=== PATIENT | female | born 1995 | race Caucasian/White ===

== ENCOUNTER 2017-02-21 23:32 | Observation (INO) | payer OTHER ==
--- NOTE | ~2017-02-21 | HP ---
History And Physical [place] [id number] [facility] [place]. [address] NAME: NAVNEET SILVEIRA : 89 STATUS : ADM Nola PAT#: [id number] AGE: 21 ADM/REG DATE : 02/21/17 MR#: [id number] REPORT SERV DATE: 02/22/17 DICTATED BY: NOAM BERRY DATE: 02/22/17 REPORT STATUS : Draft TRANSCRIBED BY: JUAN DATE: 02/22/17 DATE OF ADMISSION: 02/21/2017 CHIEF COMPLAINT: Atypical chest pain. HISTORY OF PRESENT ILLNESS: A very pleasant 21-year-old white female with no known history of CAD states that she developed chest pain yesterday around 12 noon after eating lunch at the [facility], which consisted of a barbecue amaya cheeseburger and onion rings. Around 12 noon, an hour after eating, she developed heartburn symptoms, belching that worsened as the day progressed. She tried Zantac, Pepto-Bismol, and mustard with no improvement in her symptoms. At 1800 hours, she vomited that did make her feel better. She reports some very vague shortness of breath, but considerable belching. Denies any diaphoresis or dizziness. Denies any episodes of diarrhea. She feels much better this morning. The patient denies any personal history of myocardial infarction, stroke, DVT, or pulmonary embolus. The patient denies any recent fever or chills. No palpitations. No syncopal episodes. Denies PND or orthopnea. PAST MEDICAL HISTORY: Migraine headaches. PAST SURGICAL HISTORY: Tonsillectomy and wisdom teeth. SOCIAL HISTORY: She is single. She does not have any children. She is a full-time student and works at [employer]. Does not have an exercise routine. Denies tobacco or illicits. Occasionally, consumes alcohol. No embolic events reported in first-degree relatives. REVIEW OF SYSTEMS: A 14-point review of systems performed is significant for HPI. No other contributory diagnoses identified. ALLERGIES: NO KNOWN DRUG ALLERGIES. HOME MEDICATIONS: Depo-Provera every three months. PHYSICAL EXAMINATION: VITAL SIGNS: Blood pressure 135/68, pulse 86, respirations 18, temperature 98.2, O2 saturation 99% on room air. Height 5 feet 3 inches, weight 199 pounds, BMI 35. GENERAL: Cooperative, in no apparent distress. HEENT: Pupils 2 mm. Sclera nonicteric. Nares patent. Moist mucous membranes. No xanthelasma. NECK: Trachea midline. No thyromegaly. No JVD. No bruits. LYMPH: No cervical lymphadenopathy. No supraclavicular lymphadenopathy. RESPIRATORY: Unlabored respirations. Breath sounds clear bilaterally to posterior auscultation. No wheezes or rhonchi. CARDIOVASCULAR: Regular rate. No murmur, rub, or gallop appreciated. Extremities without edema. Pulses 2+ bilaterally. History And Physical [address] [place]. [address] NAME: NAVNEET SILVEIRA : 89 STATUS : ADM Nola PAT#: [id number] AGE: 21 ADM/REG DATE : 02/21/17 MR#: [id number] REPORT SERV DATE: 02/22/17 DICTATED BY: NOAM BERRY DATE: 02/22/17 REPORT STATUS : Draft TRANSCRIBED BY: JUAN DATE: 02/22/17 ABDOMEN: Soft, nontender, nondistended. Normal bowel sounds auscultated throughout. No organomegaly. SKIN: Warm, dry extremities. No pallor or cyanosis. PSYCHIATRIC: Appropriate affect. Alert, oriented x3. LABORATORY DATA: Troponin less than 0.02 x3. Potassium 3.7, BUN 9, creatinine 0.82, glucose 80, magnesium 2.0. WBC 10.6, hemoglobin 14.1, hematocrit 40.7, platelet count 212,000. D- dimer 0.29. EKG, sinus rhythm. ASSESSMENT AND PLAN: 1. Atypical chest pain, most likely heartburn related versus food poisoning secondary to lunch at [employer]. The patient has been seen by rounding physician. We will plan discharge home with PCP followup for any recurrent symptoms. 2. Anxiety. The patient reports anxiety with this event and enquiring if any medication or anything required given a stressful life style with school and work. The patient will follow up with PCP. Recommend exercise program to manage stress on an outpatient basis versus pharmacologic. JOSE ABILIO Casillas, JBOSS DEVELOPER-BC / [id number] CC: ABILIO Casillas, JBOSS DEVELOPER-Maxine Delarosa
[2017-02-21 21:47] LABS: BASOPHILS 0.2 %; BASOPHILS ABSOLUTE 0.02 10/3/uL (0.0-0.16); EOSINOPHILS 0.7 %; EOSINOPHILS ABSOLUTE 0.07 10/3/uL (0.0-0.53); ER CBC TAT 0 Hrs 09 Mins; HEMATOCRIT 40.7 % (36.0-48.0); HEMOGLOBIN 14.1 g/dL (12.0-16.0); IMMATURE GRANULOCYTES 0.2 %; IMMATURE GRANULOCYTES ABSOLUTE 0.02 10/3/uL (0.0-0.11); LYMPHOCYTES 26.6 %; LYMPHOCYTES ABSOLUTE 2.83 10/3/uL (0.67-4.30); MEAN CORPUS HGB CONC 34.6 g/dL (32.0-36.0); MEAN CORPUSCULAR HEMOGLOB 31.1 pg (26.0-34.0); MEAN CORPUSCULAR VOLUME 89.6 fL (80-100); MEAN PLATELET VOLUME 11.5 fL (9.2-13.0); MONOCYTES 6.5 %; MONOCYTES ABSOLUTE 0.69 10/3/uL (0.21-1.20); NEUTROPHILS 65.8 %; PLATELET COUNT 212 10/3/uL (150-400); RBC DISTRIBUTION WIDTH 11.9 % (12.0-16.0); RED CELL COUNT 4.54 10/6/uL (4.0-5.6); WHITE BLOOD CELLS 10.6 10/3/uL (4.5-10.5)
[2017-02-21 21:48] LABS: MANUAL DIFF NO %
[2017-02-21 21:53] LABS: INTERNATIONAL NORMAL RATI 1.1 UNITS (-); PARTIAL THROMBO TIME 28.3 SEC (22.5-37.2); PROTIME (NOT ORD) 13.6 SEC (12.0-14.5)
[2017-02-21 22:08] LABS: BUN (BLOOD UREA NITROGEN) 9 MG/DL (6-23); CALCIUM, SERUM 9.3 MG/DL (8.5-10.4); CHEST PAIN PROFILE TAT 0 Hrs 30 Mins; CHLORIDE, SERUM 106 MMOL/L (96-112); CO2 (CARBON DIOXIDE) 26 MMOL/L (24-34); CREATININE 0.82 MG/DL (0.55-1.02); GFR AFRICAN AMERICAN 119 ML/MIN (>=60); GFR NON AFRICAN AMERICAN 102 ML/MIN (>=60); GLUCOSE, SERUM 80 MG/DL (60-99); POTASSIUM, SERUM 3.7 MMOL/L (3.5-5.3); SODIUM, SERUM 141 MMOL/L (135-148); TROPONIN I <0.02 NG/ML (<0.05)
[2017-02-21 23:54] LABS: D-DIMER QUANTITATIVE 0.29 ug/mLFEU (< 0.50)
[2017-02-22] MEDS ORDERED: DEPO PROVERA IM (02:14)
== END 2017-02-22 11:51 | disposition home or self-care (01) ==
LOC: ER 23:32 → CDU1 23:59 → CDU2 02-22 02:47
PROVIDERS: Emergency Medicine
DX: R07.89 Other chest pain (principal); F41.9 Anxiety disorder, unspecified; G43.909 Migraine, unspecified, not intractable, without status migrainosus; K21.9 Gastro-esophageal reflux disease without esophagitis; Z90.89 Acquired absence of other organs
CPT/HCPCS: 71020; 80048; 83735; 84484; 85025; 85379; 85610; 85730; 93005; 99285; A9270-GY; G0378